=== PATIENT | male | born 1965 | race Hispanic/Latino ===

== ENCOUNTER 2016-07-11 12:23 | Emergency (ER) | payer OTHER ==
[2016-07-11 12:29] VITALS: BP 149/93
--- NOTE | 2016-07-11 12:53 | ERNOTE ---
Upper Extremity HPI - Narrative Date of Service: 07/11/16 - General Extremities Pain Location: 4th finger: left - left ring finger Time Seen by Provider: 07/11/16 12:33 Source: patient Exam Limitations: no limitations - Immun/Allergies/Home Medications Immunizations: IMMUNIZATION HX Immunizations Up to Date Yes History of Influenza Vaccine Yes Hx Pneumococcal Vaccination No Allergies/Adverse Reactions: Allergies Allergy/AdvReac Type Severity Reaction Status Date / Time No Known Allergies Allergy Verified 07/11/16 12:29 Home Medications: HOME MEDICATIONS Donepezil HCl [Aricept] 10 mg PO HS 02/18/15 [Last Taken Unknown] Rivaroxaban [Xarelto] 15 mg PO DAILY 07/11/16 [Last Taken Unknown] - Pain Score Pain Score #1 Pain Score: 7 - History of Present Illness Narrative: 50 year old man presents to ED ambulatory complaining of slamming his left ring finger in tail gate of truck just SIGNAL TE[employer]. Complains of pain from left knuckle to tip of left ring finger. Nail intact but bruising noted. Skin intact. Good sensation and movement. Declined Ibuprofen and ice Date (Duration): 07/11/16 Occurred: just prior to arrival Severity: mild Method of Injury: Reports: other - slammed finger into tail gate of truck Loss of Consciousness: Reports: no loss of consciousness Modifying Factors - (Improves): Reports: immobilization, rest Modifying Factors - (Worsens): Reports: movement Associated Symptoms: Denies: tingling, weakness, numbness distally, loss of feeling, loss of power (lt arm) Other Injuries: Reports: none Review of Systems - Review of Systems Constitutional: Present: no symptoms reported EYE: Present: no symptoms reported ENT: Present: no symptoms reported Respiratory: Present: no symptoms reported. Absent: shortness of breath, cough Cardiology: Present: no symptoms reported. Absent: chest pain, palpitations Gastrointestinal/Abdominal: Present: no symptoms reported. Absent: nausea, vomiting, diarrhea Genitourinary: Present: no symptoms reported Musculoskeletal: Present: joint pain, joint swelling Skin: Present: no symptoms reported Neurological: Present: no symptoms reported Endocrine: Present: no symptoms reported Hematologic/Lymphatic: Present: no symptoms reported Psych: Present: no symptoms reported - Patient's Past Medical History Patient History - Medical: Dementia, Other Patient History - Cardiac/Respiratory: Hypertension, Pulmonary Embolism, TIA Patient History - Cancer: No Hx of Cancer Patient History - Surgical Procedures: Other Patient History - Other: None - Social History Living Situations: home Psych History: No pertinent hx Smoking Status: Never smoker Have you smoked in the past 12 months: No Do you dip or chew tobacco: No Alcohol Use: none Drug Use: none - Immunizations Immunizations Up to Date: Yes Hx Pneumococcal Vaccination: No History of Influenza Vaccine: Yes Physical Exam - Physical Exam General Appearance: Present: wd/wn, alert, no apparent distress Eye Exam: Normal inspection: bilateral, PERRL: bilateral Ears, Nose, Throat: Present: normal ENT inspection, hearing grossly normal Neck: Present: normal inspection Respiratory: Present: no respiratory distress, normal breath sounds, no accessory muscle use, chest nontender, lungs clear Cardiovascular/Chest: Present: regular rate, rhythm, no murmur, normal peripheral pulses Gastrointestinal/Abdominal: Present: normal bowel sounds Rectal Exam: Present: deferred Male Genitals Exam: Present: deferred Back Exam: Present: normal inspection Extremity Exam: Present: normal inspection, no edema, decreased range of motion - left 4th digit Neurological Exam: Present: alert, oriented, normal mood/affect, no motor/ sensory deficits ED Progress - Vital Signs Patient's Vital Signs:: I have reviewed the patient's vital signs. Vital Signs: Vital Signs 07/11/16 12:26 Temperature 34.7 C L Pulse Rate 65 Respiratory 14 Rate Blood Pressure 149/93 O2 Sat by Pulse 98 Oximetry - X-Ray X-Ray #1 X-Ray: left ring finger Interpretation: Reviewed by me - Progress/Reassessment Chief Complaint: Hand Injury/Pain Progress:: Unchanged Progress Note-Subjective: 07/11/16 13:46 patient left AMA prior to final radiology results. Departure Clinical Impression: Finger injury Qualifiers: Encounter type: initial encounter Laterality: left Qualified Code(s): S69.92XA - Unspecified injury of left wrist, hand and finger(s), initial encounter - Departure Disposition: Left without seen by physician Condition: Good
--- OUTSIDE RECORDS SUMMARY | 2016-07-11 12:59 | XMS REPORT | Continuity of Care Document ---
:1965 Author Organization [facility] ([facility]) Address [address] [place] [address] Phone [phone] Care Team Providers Name Role Phone Domenico Peterson Primary Care Provider [phone] Source Comments This disclosure is being made pursuant to the Care Everywhere program, applicable federal and state laws, and may not contain all informaitonavailable regarding this patient.[facility] ([facility]) Active Allergies and Adverse Reactions No Known Allergies Current Medications Prescription Sig. Disp. Refills Start Date End Date Status ibuprofen 800 mg tablet Take 800 mg by Active mouth 2 times daily. multivitamin with minerals Take 1 Tab by Active tablet mouth daily. donepezil 23 mg tablet Take 23 mg by Active mouth daily nabumetone 750 mg tablet Take 750 mg by Active mouth 2 times daily HYDROcodone-acetaminophen Take 1 tablet by Active (VICODIN HP) 10-300 mg per mouth every 6 tablet hours as needed oxyCODONE (OxyCONTIN) 10 Take 15 mg by Active mg CR tablet mouth daily prn cyanocobalamin (VITAMIN Take 2,500 mcg by Active B-12) PO mouth ergocalciferol (VITAMIN Take 5,000 Units Active D2) 50,000 unit capsule by mouth Every other day cholecalciferol (VITAMIN Take 5,000 Units Active D3) 5,000 unit capsule by mouth every 48 hours predniSONE PO 6 tablets x 3 days Active then 3 tablets x 3 days then 1 1/2 tablets x 3 days then 1 tab x 3 days then half tab every other day x 3 days Active Problems Problem Noted Date 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 Bilateral foot pain 06/16/2012 Syncope and collapse 06/16/2012 Health education/counseling 10/12/2011 Patent foramen ovale 08/19/2011 Other physical therapy 04/01/2011 Dizziness - light-headed 04/01/2011 Health maintenance examination 03/23/2011 Pre-syncope 03/23/2011 Hip pain, bilateral 03/23/2011 Chronic foot pain 03/23/2011 Immunizations Name Dates Previously Given Next Due Influenza, PF 03/23/2011 Social History Tobacco Use Types Packs/Day Years Used Date Never Smoker Smokeless Tobacco: Former User Chew Quit: 03/29/2010 Tobacco Cessation:Counseling Given: Yes Comments: Alcohol Use Drinks/Week oz/Week Comments No none x 1.3 yrs. Last Filed Vital Signs Vital Sign Reading Time Taken Blood Pressure 137/71 05/09/2015 1:44 PM TRAVELING ACCOUNTANT Pulse 67 05/09/2015 1:44 PM TRAVELING ACCOUNTANT Temperature 36 C (96.8 F) 10/12/2011 9:35 AM CDT Respiratory Rate - - Height 1.791 m (5' 10.51") 03/25/2015 12:13 PM TRAVELING ACCOUNTANT Weight 88.5 kg (195 lb 1.7 oz) 05/09/2015 1:44 PM TRAVELING ACCOUNTANT Body Mass Index 27.59 05/09/2015 1:44 PM TRAVELING ACCOUNTANT Oxygen Saturation 95% 10/27/2012 9:00 AM CDT Plan of Care Patient Goal Type Goal Lifestyle believes there is none on the goal sheet for him to choose any. Health Maintenance Due Date Last Done Comments HCV Screening 1965 Hepatitis B Vaccine (1 of 3 - Primary Series) 1965 Tdap Vaccine 10/07/1975 MMR Vaccine 1982 Colonoscopy 2014 Prostate Cancer Screening 2014 Influenza Vaccine: Seasonal (#1) 12/23/2015 03/23/2011 Lipid Disorder Screening 03/23/2016 03/23/2011 Td Vaccine 03/23/2020 03/23/2010 Results from Last 3 Months Not on file
== END 2016-07-11 13:45 | disposition left against medical advice (07) ==
LOC: ER 12:23
DX: S69.92XA Unspecified injury of left wrist, hand and finger(s), initial encounter (principal); W23.0XXA Caught, crushed, jammed, or pinched between moving objects, initial encounter; Y92.810 Car as the place of occurrence of the external cause; I10 Essential (primary) hypertension; F03.90 Unspecified dementia, unspecified severity, without behavioral disturbance, psychotic disturbance, mood disturbance, and anxiety; Z86.711 Personal history of pulmonary embolism; Z86.73 Personal history of transient ischemic attack (TIA), and cerebral infarction without residual deficits; Z53.29 Procedure and treatment not carried out because of patient's decision for other reasons

== ENCOUNTER 2016-09-28 20:10 | Emergency (ER) | payer OTHER ==
[2016-09-28] MEDS ORDERED: PROMETHAZINE HCL 25 MG/ML AMPUL IM ONE (20:24)
[2016-09-28] MEDS ORDERED: NORMAL SALINE 1,000 ML IV ONE (20:24)
[2016-09-28] MEDS ORDERED: MORPHINE SULFATE 2 MG/ML DISP.SYRIN IV ONE (20:24)
--- OUTSIDE RECORDS SUMMARY | 2016-09-28 20:28 | XMS REPORT | Continuity of Care Document ---
:1965 Author Organization [facility] ([facility]) Address [address] [place] [address] Phone [phone] Care Team Providers Name Role Phone Domenico Peterson Primary Care Provider [phone] Source Comments This disclosure is being made pursuant to the Care Everywhere program, applicable federal and state laws, and may not contain all informaitonavailable regarding this patient.[facility] ([facility]) Active Allergies and Adverse Reactions No Known [...] Taken Blood Pressure 137/71 05/09/2015 1:44 PM COUNSELOR AIDE Pulse 67 05/09/2015 1:44 PM COUNSELOR AIDE Temperature 36 C (96.8 F) 10/12/2011 9:35 AM CDT Respiratory Rate - - Height 1.791 m (5' 10.51") 03/25/2015 12:13 PM COUNSELOR AIDE Weight 88.5 kg (195 lb 1.7 oz) 05/09/2015 1:44 PM COUNSELOR AIDE Body Mass Index 27.59 05/09/2015 1:44 PM COUNSELOR AIDE Oxygen Saturation 95% 10/27/2012 9:00 AM CDT [...]
--- NOTE | 2016-09-28 20:30 | ERNOTE ---
Abdominal HPI - General Chief Complaint: Abdominal Pain Time Seen by Provider: 09/28/16 20:18 Source: patient Exam Limitations: no limitations - Immun/Allergies/Home Medications Immunizatons: IMMUNIZATION HX Immunizations Up to Date Yes History of Influenza Vaccine Yes Hx Pneumococcal Vaccination No Allergies/Adverse Reactions: Allergies ibuprofen [From Advil] Adverse Reaction (Verified 09/28/16 20:50) morphine Adverse Reaction (Verified 09/28/16 20:50) Home Medications: HOME MEDICATIONS Donepezil HCl [Aricept] 10 mg PO HS 02/18/15 [Last Taken Unknown] Dabigatran Etexilate Mesylate [Pradaxa] 150 mg PO BID 09/28/16 [Last Taken Unknown] Esomeprazole Magnesium [Nexium] 20 mg PO DAILY 09/28/16 [Last Taken Unknown] Nabumetone 750 mg PO BID 09/28/16 [Last Taken Unknown] - History of Present Illness Narrative: Pt had IVC filter placed this AM and has increasing abdominal pain throughout the day with progressing right flank pain as well Timing: getting worse Quality: severe Activities at Onset: none Modifying Factors - (Improves): Present: analgesics - fentanyl given by EMS has improved pain slightly Associated Symptoms: Present: diaphoresis, shortness of breath Prior Abdominal Problems: Present: none Prior Treatment: Present: recently seen, treated by physician, recently hospitalized - IVC filter placed Review of Systems - Review of Systems Constitutional: Absent: recent illness EYE: Present: no symptoms reported ENT: Present: no symptoms reported Respiratory: Present: shortness of breath Cardiology: Absent: chest pain, palpitations Gastrointestinal/Abdominal: Present: abdominal pain Genitourinary: Present: pain Musculoskeletal: Present: back pain Skin: Present: no symptoms reported Neurological: Present: no symptoms reported Endocrine: Present: no symptoms reported Hematologic/Lymphatic: Present: no symptoms reported Psych: Present: no symptoms reported - Patient's Past Medical History Patient History - Medical: Dementia, Other Patient History - Cardiac/Respiratory: Hypertension, Pulmonary Embolism, TIA Patient History - Cancer: No Hx of Cancer Patient History - Surgical Procedures: Other - IVC filter placement Patient History - Other: None - Social History Living Situations: home Psych History: No pertinent hx Alcohol Use: none Drug Use: none - Immunizations Immunizations Up to Date: Yes Hx Pneumococcal Vaccination: No History of Influenza Vaccine: Yes Physical Exam - Physical Exam General Appearance: Present: wd/wn, alert, mild distress Eye Exam: Normal inspection: bilateral Respiratory: Present: normal breath sounds, no accessory muscle use, chest nontender Cardiovascular/Chest: Present: regular rate, rhythm, no murmur Peripheral Pulses: N=norm/S=strong/W=weak/B=bound/A=absent: Femoral (R): Normal , Dorsalis-pedis (R): Normal, Dorsalis-pedis (L): Normal Gastrointestinal/Abdominal: Present: normal bowel sounds, tenderness - Right mid abdomen Back Exam: Present: normal range of motion, CVA tenderness (R) Extremity Exam: Present: normal inspection Neurological Exam: Present: alert, oriented Skin Exam: Present: normal color, diaphoresis Lymphatic Exam: Present: no adenopathy ED Progress - Results and Orders Patient's Lab Results:: I have reviewed the patient's lab results. Results and Orders: Laboratory Tests 09/28/16 20:40 WBC 7.8 Hgb 15.9 Hct 44.9 Plt Count 196 - Vital Signs Patient's Vital Signs:: I have reviewed the patient's vital signs. - CT/Ultrasound CT/Ultrasound Narrative: IVC filter low in the IVC. Tines into bilateral common illiac veins. - Progress/Reassessment Progress:: Improved Progress Note-Subjective: Spoke with Dr. Roxana Lee at [facility]. She has no ICU beds , and will call back. She called back an they have no vascular coverage tonight. Spoke with Staff at [facility] and they report not having vascular coverage tonight. 09/28/16 21:[address] Roe Dutta at [facility] ED. He agrees to accept the patient in transfer. Departure - Departure Clinical Impression: Presence of vena cava filter Displacement of vascular device Qualifiers: Encounter type: initial encounter Qualified Code(s): T82.529A - Displacement of unspecified cardiac and vascular devices and implants, initial encounter Disposition: [facility] Condition: Serious
[2016-09-28] MEDS ORDERED: MORPHINE SULFATE 2 MG/ML DISP.SYRIN ONE (20:45)
[2016-09-28] MEDS ORDERED: PROMETHAZINE HCL 25 MG/ML AMPUL ONE (20:45)
[2016-09-28 20:47] LABS: Hematocrit 44.9 % (42.0-52.0); Hemoglobin 15.9 gm/dL (13.5-18.0); Mean Cell Volume 89.4 fl (78-100); Mean Corpuscular Hemoglobin 31.7 pg (27-31); Mean Corpuscular Hgb Conc 35.4 g/dl (32-36); Mean Platelet Volume 10.5 fl (6.0-9.5); Neutrophil # 3.5 K/mm3 (1.3-6.0); Platelet Count 196 K/mm3 (150-450); Red Blood Count 5.02 M/mm3 (4.7-6.0); Red Cell Distribution Width 12.7 % (11.5-14.0); White Blood Count 7.8 K/mm3 (4.0-10.5)
[2016-09-28] MEDS ORDERED: MORPHINE SULFATE 4 MG/ML SYRG ONE (21:07)
[2016-09-28] MEDS ORDERED: MORPHINE SULFATE 4 MG/ML SYRG IV ONE (21:16)
[2016-09-28 21:52] VITALS: BP 128/85
[2016-09-28] MEDS ORDERED: fentaNYL CITRATE/PF 50 MCG/ML AMPUL ONE (21:53)
[2016-09-28] MEDS ORDERED: fentaNYL CITRATE/PF 50 MCG/ML AMPUL IV ONE (21:54)
== END 2016-09-28 22:08 | disposition short-term general hospital (02) ==
LOC: ER 20:10
DX: T82.529A Displacement of unspecified cardiac and vascular devices and implants, initial encounter (principal); I10 Essential (primary) hypertension; Z86.711 Personal history of pulmonary embolism; Z79.01 Long term (current) use of anticoagulants; Z86.73 Personal history of transient ischemic attack (TIA), and cerebral infarction without residual deficits

== ENCOUNTER 2016-10-09 15:23 | Emergency (ER) | payer OTHER ==
[2016-10-09] MEDS ORDERED: oxyCODONE HCL/ACETAMINOPHEN 1 TAB TABLET PO ONE (16:14)
--- OUTSIDE RECORDS SUMMARY | 2016-10-09 16:14 | XMS REPORT | Continuity of Care Document ---
:1965 Author Organization [facility] ([facility]) Address [address] [place] [address] Phone [phone] Care Team Providers Name Role Phone Domenico Peterson Primary Care Provider [phone] Source Comments This disclosure is being made pursuant to the Care Everywhere program, applicable federal and state laws, and may not contain all informaitonavailable regarding this patient.[facility] ([facility]) Active Allergies and Adverse Reactions No Known Allergies Current Medications Prescription Sig. Disp. Refills Start End Date Status Date nabumetone 750 mg Take 750 mg by Active tablet mouth at bedtime. cyanocobalamin Take 2,500 mcg by Active (VITAMIN B-12) PO mouth daily. cholecalciferol Take 5,000 Units Active (VITAMIN D3) 5,000 by mouth every 48 unit capsule hours donepezil 10 mg Take 10 mg by Active tablet mouth at bedtime. oxyCODONE-acetaminop Take 1-2 tablets 15 tablet 0 Active hen 5-325 mg per by mouth every 6 7 tablet hours as needed. Do NOT exceed 4000 mg of acetaminophen per 24 hours. dabigatran (praDAXA) Take 150 mg by Active 150 mg capsule mouth 2 times daily. ibuprofen 800 mg Take 800 mg by 09/30/19 Discontinued tablet mouth 2 times 17 daily. multivitamin with Take 1 Tab by 09/30/19 Discontinued minerals tablet mouth daily. 17 donepezil 23 mg Take 23 mg by 09/30/19 Discontinued tablet mouth daily 17 HYDROcodone-acetamin Take 1 tablet by 09/30/19 Discontinued ophen (VICODIN HP) mouth every 6 17 10-300 mg per tablet hours as needed oxyCODONE Take 15 mg by 09/30/19 Discontinued (OxyCONTIN) 10 mg CR mouth daily prn 17 tablet ergocalciferol Take 5,000 Units 09/30/19 Discontinued (VITAMIN D2) 50,000 by mouth Every 17 unit capsule other day predniSONE PO 6 tablets x 3 09/30/19 Discontinued days then 3 17 tablets x 3 days then 1 1/2 tablets x 3 days then 1 tab x 3 days then half tab every other day x 3 days Active Problems Problem Noted Date RLQ abdominal pain 09/29/2016 S/P insertion of IVC (inferior vena caval) filter 09/29/2016 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 Bilateral foot pain 06/16/2012 Syncope and collapse 06/16/2012 Health education/counseling 10/12/2011 Patent foramen ovale 08/19/2011 Other physical therapy 04/01/2011 Dizziness - light-headed 04/01/2011 Health maintenance examination 03/23/2011 Pre-syncope 03/23/2011 Hip pain, bilateral 03/23/2011 Chronic foot pain 03/23/2011 Most Recent Encounters Date Type Specialty Providers Description 09/29/2016 Surgery Radiology Radiologist, Rad IR IVC FILTER Invasive PLACEMENT 09/29/2016 Surgery Radiology Radiologist, Rad Canceled IR Invasive PERIPHERAL RADIOLOGY PROCEDURE 09/28/2016 - Hospital Encounter General Care Theo Romano Dx: RLQ abdominal 09/30/2016 Inpatient - Adult MD Mitesh pain (Primary Dx) Jo Buitrago MD Sistla, Phanicharan, MD Soufi, Kaylah Fuentes MD Immunizations Name Dates Previously Given Next Due Influenza, PF 03/23/2011 Social History Tobacco Use Types Packs/Day Years Used Date Never Smoker Smokeless Tobacco: Former User Chew Quit: 03/29/2010 Tobacco Cessation:Counseling Given: Yes Comments: Alcohol Use Drinks/Week oz/Week Comments No none x 1.3 yrs. Last Filed Vital Signs Vital Sign Reading Time Taken Blood Pressure 126/80 09/30/2016 8:21 AM CDT Pulse 58 09/30/2016 8:21 AM CDT Temperature 36 C (96.8 F) 09/30/2016 8:21 AM CDT Respiratory Rate 16 09/30/2016 8:21 AM CDT Height 1.791 m (5' 10.5") 09/29/2016 5:56 AM CDT Weight 88.6 kg (195 lb 5.2 oz) 09/29/2016 5:56 AM CDT Body Mass Index 27.62 09/29/2016 5:56 AM CDT Oxygen Saturation 97% 09/30/2016 8:21 AM CDT Plan of Care Patient Goal Type Goal Lifestyle believes there is none on the goal sheet for him to choose any. Health Maintenance Due Date Last Done Comments HCV Screening 1965 Hepatitis B Vaccine (1 of 3 - Primary Series) 1965 Tdap Vaccine 10/07/1975 MMR Vaccine 1982 Colonoscopy 2014 Prostate Cancer Screening 2014 Lipid Disorder Screening 03/23/2016 03/23/2011 Influenza Vaccine: Seasonal (Season Ended) 2016 03/23/2011 Td Vaccine 03/23/2020 03/23/2010 Results from Last 3 Months DIFFERENTIAL (09/30/2016 5:16 AM)Only the most recent of2 resultswithin the time period is included. Component Value Range % Neutrophils-Auto Diff 44.4 % Neutrophils-Auto Diff 3300 9230-7836 /MM3 % Lymphocytes-Auto Diff 40.9 % Lymphocytes-Auto Diff 3050 875-3300 /MM3 % Monocytes-Auto Diff 9.1 % Monocytes-Auto Diff 680 130-860 /MM3 % Eosinophils-Auto Diff 4.7 % Eosinophils-Auto Diff 350 40-390 /MM3 % Basophils 0.5 % Basophils-Auto Diff 40 10-136 /MM3 % Immature Granulocytes-Auto Diff 0.4 % Immature Granulocytes-Auto Diff 30 /MM3 Specimen Whole Blood CBC (COMPLETE BLOOD COUNT) (09/30/2016 5:16 AM)Only the most recent of2 resultswithin the time period is included. Component Value Range WBC Count 7.5 3.7-10.5 K/MM3 RBC Count 5.01 4.50-6.20 M/MM3 Hemoglobin 15.8 13.2-17.7 g/dL Hematocrit 46 40-52 % MCV (Mean Corpuscular Volume) 91 82-99 FL MCH (Mean Corpuscular Hemoglobin) 32 25-35 PG MCHC (Mean Corpuscular Hemoglobin Concentration) 35 32-36 % Platelet Count 153 150-400 K/MM3 MPV (Mean Platelet Volume) 10.4 9.4-12.3 FL RBC Dist Width-STD 43.1 35.1-43.9 FL RBC Distrib Width 12.8 9.0-14.5 % Nucleated RBC 0 /100 WBC Specimen Whole Blood PT/INR (PROTHROMBIN TIME/INR) VENOUS (09/30/2016 5:16 AM)Only the most recent of2 resultswithin the time period is included. Component Value Range PT (Prothrombin Time) 10 9-12 secs INR 1.0 <4.0 Specimen Blood CHEM 7 PANEL (09/30/2016 5:16 AM) Component Value Range Sodium 140 135-145 mEq/L Chloride 104 95-107 mEq/L Potassium 4.1 3.5-5.0 mEq/L CO2 24 22-29 mEq/L BUN 16 10-20 mg/dL Creatinine 1.3(H)Comment: 0.6-1.2 mg/dL Creatinine switched to enzymatic method on 09/30/2010.GFR equation switched to IDMS-traceable MDRD equation on 09/30/2010. Calculated GFR values are not valid in clinical settings where serum creatinine is changing. Glucose 93Comment: 65-99 mg/dL The Expert Committee on the Diagnosis and Classification of Diabetes has defined impaired fasting glucose as greater than or equal to 100 mg/dL but less than 126 mg/dL.(Diabetes Care 28 (Suppl 1)S41,2005) Anion Gap 12 <17 mEq/L Calculated GFR 58(L) >60 mL/min/1.73 m2 Specimen Blood CBC WITH DIFFERENTIAL (09/30/2016 5:16 AM)Only the most recent of2 resultswithin the time period is included. Specimen Whole Blood Narrative The following orders were created for panel order CBC WITH DIFFERENTIAL. Procedure Abnormality Status --------- ------ CBC (COMPLETE BLOOD COUNT)[[id number]] Final result DIFFERENTIAL[[id number]] Final result Please view results for these tests on the individual orders. CT ABDOMEN& PELVIS WO CONTRAST ([id number]) (09/29/2016 4:24 PM) Impressions Impression: 1. No retroperitoneal or inguinal hematomas or fluid collections visualized. 2. IVC filter is located just above the confluence of common iliac veins in the distal IVC. Narrative Procedure: CT ABDOMEN & PELVIS WO CONTRAST ([id number]) Clinical Indication: right groin pain s/p IVC filter placement, please evaluate for complication of this such as retroperitoneal hematoma, etc. Technique: CT exam of the abdomen and pelvis is performed without IV contrast. Comparison: External CTA from 09/28/2016 Findings: The absence of IV contrast limits assessment of the solid organs, bowel, and vascular structures. Lower chest: Bibasilar atelectasis. Liver: Normal Bile ducts: Not dilated. Gallbladder: Vicarious excretion in the gallbladder. Pancreas: Normal Spleen: Normal Adrenal glands: Normal Kidneys: Right inferior pole punctate nonobstructing stone. Ureters: Normal Bladder: Contrast visualized in the bladder. Aorta: The IVC filter is visualized in the distal IVC just above the confluence of the common iliac vein. No aneurysmal dilation. Retroperitoneum: Scattered benign lymphadenopathy. Peritoneum: No ascites or pneumoperitoneum. Mesentery: Normal Stomach: Not distended. Small bowel: Not distended. Colon: Not distended. Appendix: Normal. Extraperitoneal pelvis: No lymphadenopathy. Prostate: Not enlarged. Abdominal wall: Small fat-containing umbilical hernia. No retroperitoneal hematoma or inguinal hematoma. No focal fluid collections or abscesses visualized. Moderate sized left fat-containing inguinal hernias. Bones: No acute fracture or destructive bone lesion. There are degenerative changes of the spine with osteophyte formation most prominent posteriorly at L5-S1. Procedure Note Jordi, Incoming Imaging Results - WedSeptember 30, 2016 8:31 AM CDT Procedure: CT ABDOMEN & PELVIS WO CONTRAST ([id number]) Clinical Indication: right groin pain s/p IVC filter placement, please evaluate for complication of this such as retroperitoneal hematoma, etc. Technique: CT exam of the abdomen and pelvis is performed without IV contrast. Comparison: External CTA from 09/28/2016 Findings: The absence of IV contrast limits assessment of the solid organs, bowel, and vascular structures. Lower chest: Bibasilar atelectasis. Liver: Normal Bile ducts: Not dilated. Gallbladder: Vicarious excretion in the gallbladder. Pancreas: Normal Spleen: Normal Adrenal glands: Normal Kidneys: Right inferior pole punctate nonobstructing stone. Ureters: Normal Bladder: Contrast visualized in the bladder. Aorta: The IVC filter is visualized in the distal IVC just above the confluence of the common iliac vein. No aneurysmal dilation. Retroperitoneum: Scattered benign lymphadenopathy. Peritoneum: No ascites or pneumoperitoneum. Mesentery: Normal Stomach: Not distended. Small bowel: Not distended. Colon: Not distended. Appendix: Normal. Extraperitoneal pelvis: No lymphadenopathy. Prostate: Not enlarged. Abdominal wall: Small fat-containing umbilical hernia. No retroperitoneal hematoma or inguinal hematoma. No focal fluid collections or abscesses visualized. Moderate sized left fat-containing inguinal hernias. Bones: No acute fracture or destructive bone lesion. There are degenerative changes of the spine with osteophyte formation most prominent posteriorly at L5-S1. IMPRESSION Impression: 1. No retroperitoneal or inguinal hematomas or fluid collections visualized. 2. IVC filter is located just above the confluence of common iliac veins in the distal IVC. EXTERNAL CT - STORE ONLY (09/29/2016 7:26 AM)PTT (PARTIAL THROMBOPLASTIN TIME) (09/29/2016 12:43 AM) Component Value Range PTT 23 22-31 secs Specimen Blood BASIC METABOLIC PANEL W/ CALCIUM (CHEM 8) (09/29/2016 12:43 AM) Component Value Range Sodium 143 135-145 mEq/L Potassium 4.3 3.5-5.0 mEq/L Chloride 109(H) 95-107 mEq/L CO2 24 22-29 mEq/L BUN 14 10-20 mg/dL Creatinine 1.2Comment: 0.6-1.2 mg/dL Creatinine switched to enzymatic method on 09/30/2010.GFR equation switched to IDMS-traceable MDRD equation on 09/30/2010. Calculated GFR values are not valid in clinical settings where serum creatinine is changing. Glucose 100(H)Comment: 65-99 mg/dL The Expert Committee on the Diagnosis and Classification of Diabetes has defined impaired fasting glucose as greater than or equal to 100 mg/dL but less than 126 mg/dL.(Diabetes Care 28 (Suppl 1)S41,2005) Calcium 8.4(L) 8.5-10.5 mg/dL Anion Gap 10 <17 mEq/L Calculated GFR 64 >60 mL/min/1.73 m2 Specimen Blood
--- NOTE | 2016-10-09 16:16 | ERNOTE ---
Lower Extremity HPI - Narrative Date of Service: 10/09/16 - General Lower Extremities Pain: knee: left Time Seen by Provider: 10/09/16 15:47 Source: patient, RN notes reviewed, old records - Immun/Allergies/Home Medications Immunizations: IMMUNIZATION HX Immunizations Up to Date Yes History of Influenza Vaccine No Hx Pneumococcal Vaccination No Allergies/Adverse Reactions: Allergies Allergy/AdvReac Type Severity Reaction Status Date / Time ibuprofen [From Advil] AdvReac Verified 10/09/16 15:43 morphine AdvReac Verified 10/09/16 15:43 Home Medications: HOME MEDICATIONS Donepezil HCl [Aricept] 10 mg PO HS 02/18/15 [Last Taken Unknown] Dabigatran Etexilate Mesylate [Pradaxa] 150 mg PO BID 09/28/16 [Last Taken Unknown] Esomeprazole Magnesium [Nexium] 20 mg PO DAILY 09/28/16 [Last Taken Unknown] Nabumetone 750 mg PO HS 09/28/16 [Last Taken Unknown] oxyCODONE HCL/ACETAMINOPHEN [Oxycodone-Acetaminophen 5-325] 1 each PO Q6H PRN # 12 tablet 10/09/16 [Last Taken Unknown] - History of Present Illness Narrative: 51 y/o male ambulatory to the ED for left knee pain and swelling. He was diagnosed with a DVT behind the left knee approximately 6 weeks ago. He was also found to have several pulmonary emboli. He was initially anticoagulated with Xarelto. He had a repeat chest CTA for re-evaluation and was found to have more pulmonary emboli despite being anticoagulated. He was switched to Pradaxa. He then had an IVC filter placed at [facility] earlier this month. He was then seen here on 09/28/16 and the filter was found to be displaced. He was transferred to [facility] and discharged on 09/30/16. No intervention was done regarding the filter. He is also having pain in his left anterior chest that began today. He reports that it feels similar to the pain he has had with his PE's. Method of Injury: Reports: no apparent injury Modifying Factors - (Improves): Denies: immobilization, movement, rest Modifying Factors - (Worsens): Denies: movement, rest Associated Symptoms: Denies: unable to bear weight Prior Treament: Reports: recently seen, treated by physician, recently hospitalized, similar symptoms before. Denies: currently on antibiotics Review of Systems - Review of Systems Constitutional: Absent: fever, chills, malaise EYE: Present: no symptoms reported ENT: Present: no symptoms reported Respiratory: Absent: shortness of breath, cough Cardiology: Present: chest pain, edema. Absent: palpitations, claudication Gastrointestinal/Abdominal: Absent: nausea, abdominal pain Genitourinary: Present: no symptoms reported Musculoskeletal: Absent: joint pain, joint swelling Skin: Present: change in color. Absent: rash, lesions, lumps Neurological: Absent: headache, dizziness/light-headedness, weakness, numbness, tingling Endocrine: Present: no symptoms reported Hematologic/Lymphatic: Present: easy bruising, easy bleeding Psych: Present: no symptoms reported - Patient's Past Medical History Patient History - Medical: Dementia Patient History - Cardiac/Respiratory: Deep Vein Thrombosis, Hypertension, Pulmonary Embolism, TIA Patient History - Cancer: No Hx of Cancer Patient History - Surgical Procedures: Other - IVF filter, Orthopedic - Carpal tunnel Patient History - Other: None - Social History Living Situations: alone Psych History: No pertinent hx Smoking Status: Never smoker Alcohol Use: none Drug Use: none - Immunizations Immunizations Up to Date: Yes Hx Pneumococcal Vaccination: No History of Influenza Vaccine: No Physical Exam - Physical Exam General Appearance: Present: wd/wn, alert, anxious Neck: Present: normal inspection, nontender, supple Respiratory: Present: no respiratory distress, normal breath sounds, no accessory muscle use, chest nontender, lungs clear Cardiovascular/Chest: Present: regular rate, rhythm, no murmur, normal peripheral pulses Extremity Exam: Present: normal range of motion, extremity edema - left leg slightly edematous from just above knee to distal calf, other - tenderness in left popliteal fossa and anterior distal thigh. Absent: calf tenderness, joint redness, joint swelling Neurological Exam: Present: alert, oriented, normal mood/affect, no motor/ sensory deficits Skin Exam: Present: normal color, warm/dry ED Progress - Results and Orders Patient's Lab Results:: I have reviewed the patient's lab results. - Vital Signs Patient's Vital Signs:: I have reviewed the patient's vital signs. Vital Signs: Vital Signs 10/09/16 10/09/16 15:29 15:55 Temperature 36.2 C L Pulse Rate 65 64 Respiratory 12 16 Rate Blood Pressure 124/68 138/87 O2 Sat by Pulse 98 97 Oximetry - EKG EKG: NSR EKG read: Reviewed by me - CT/Ultrasound CT/Ultrasound Narrative: Comparison: September 18, 2016 Technique: US Venous Ext Limited LT * Findings: Duplex Doppler grayscale and color interrogation of the left deep venous system was performed. Reidentified partially compressible popliteal vein due to thrombosis. This is unchanged from prior exam. The remainder of the deep venous system on the left is patent. IMPRESSION: Unchanged partially occlusive deep venous thrombosis within the popliteal vein Electronically signed by Yohannes Chavez M.D.. Comparison: CT scan dated September 09, 2016 and September 28, 2016 Technique: CTA Chest * Findings: No axillary, mediastinal or hilar lymphadenopathy. No pleural or pericardial effusion. No suspicious pulmonary nodule, consolidation or mass. There is dependent atelectasis within the lungs. Reidentified right main extending into lower lobe segmental and subsegmental segmental pulmonary artery branch filling defects. There also is some extension into some upper lobe branches as well on the right. PEs were seen in August in the lower lobe segmental and subsegmental branches and some upper lobe as well. These do appear slightly different than in August and the possibility of acute on chronic PE cannot be entirely excluded. No left-sided PE identified. No right heart strain. The pulmonary artery is normal in course and caliber. Aorta is normal in course and caliber. Great vessels are unremarkable. Heart size is normal. There is fatty infiltration of the liver. Osseous structures are intact. IMPRESSION: 1. Multiple chronic PEs on the right as detailed above. The possibility of acute on chronic PTE cannot be entirely excluded. No identifiable right heart strain or enlarged pulmonary artery. Electronically signed by Yohannes Chavez M.D.. - Progress/Reassessment Chief Complaint: Lower Extremity Pain/ Injury Progress:: Improved Plan - Plan Plan: Discussed test results with patient. DVT of left leg is stable. Has multiple right sided PE's - likely chronic although acute on chronic could not be ruled out on his chest CTA, however, his pain today was in the left chest and there were no left sided PE's. He has had no dyspnea, tachycardia, or hypoxia that would be suspicious of an acute PE. Some improvement in knee pain with Percocet , to f/u with PCP on Wednesday if knee pain and edema are not improving. Departure Clinical Impression: Deep vein thrombophlebitis of left leg Chronic pulmonary embolism Qualifiers: Pulmonary embolism type: other Acute cor pulmonale presence: without acute cor pulmonale Qualified Code(s): I27.82 - Chronic pulmonary embolism Knee pain, left Qualifiers: Chronicity: acute Qualified Code(s): M25.562 - Pain in left knee - Departure Disposition: Home Follow Up Needed Condition: Stable Instructions: Knee Pain, [id number] Additional Instructions: Continue your current medications Contact your PCP next week if knee pain and swelling persists Referrals: Deepthi Rene ARNP [Non Staff Physicians] - Prescriptions: oxyCODONE HCL/ACETAMINOPHEN [Oxycodone-Acetaminophen 5-325] 1 each PO Q6H PRN # 12 tablet PRN Reason: Pain
[2016-10-09] MEDS ORDERED: oxyCODONE HCL/ACETAMINOPHEN 1 TAB TABLET ONE (16:17)
[2016-10-09 16:31] LABS: Hematocrit 49.8 % (42.0-52.0); Hemoglobin 17.5 gm/dL (13.5-18.0); Mean Cell Volume 90.4 fl (78-100); Mean Corpuscular Hemoglobin 31.8 pg (27-31); Mean Corpuscular Hgb Conc 35.1 g/dl (32-36); Mean Platelet Volume 10.1 fl (6.0-9.5); Neutrophil # 4.2 K/mm3 (1.3-6.0); Neutrophil % 51.4 % (42-75.0); Platelet Count 237 K/mm3 (150-450); Red Blood Count 5.51 M/mm3 (4.7-6.0); Red Cell Distribution Width 12.5 % (11.5-14.0); White Blood Count 8.2 K/mm3 (4.0-10.5)
[2016-10-09 16:39] LABS: Prothrombin Time (Patient) 11.8 Seconds (9.4-11.4)
[2016-10-09 16:40] LABS: INR 1.13 INR (0.90-1.10); Partial Thrombolplastin Time 39.2 Seconds (24-32)
[2016-10-09 16:47] LABS: ALT 44 U/L (19-67); AST 21 U/L (0-48); Albumin * 3.8 gm/dl (3.4-5.0); Alkaline Phosphatase * 154 U/L (50-170); Bilirubin, Total 0.3 mg/dL (0.0-1.1); Blood Urea Nitrogen 17 mg/dL (6-23); Ca. Corrected For Albumin 9.1 mg/dL (8.4-10.2); Calcium * 9.3 mg/dL (7.9-10.9); Carbon Dioxide 29.1 mmol/L (24-32.6); Chloride 106 mmol/L (97-106); Glucose * 105 mg/dL (70-110); Potassium 4.1 mmol/L (3.4-4.6); Sodium 141 mmol/L (132-142); Total Protein 7.3 gm/dL (6.2-8.2); Troponin I Less than 0.017 ng/ml (0.00-0.10)
[2016-10-09 18:48] VITALS: BP 129/84
== END 2016-10-09 18:45 | disposition home or self-care (01) ==
LOC: ER 15:23
DX: I82.402 Acute embolism and thrombosis of unspecified deep veins of left lower extremity (principal); I27.82 Chronic pulmonary embolism; M25.562 Pain in left knee; F03.90 Unspecified dementia, unspecified severity, without behavioral disturbance, psychotic disturbance, mood disturbance, and anxiety; Z86.73 Personal history of transient ischemic attack (TIA), and cerebral infarction without residual deficits; Z86.711 Personal history of pulmonary embolism; Z79.01 Long term (current) use of anticoagulants

== ENCOUNTER 2017-03-20 16:16 | Emergency (ER) | payer OTHER ==
[2017-03-20 16:25] VITALS: BP 125/86
--- NOTE | 2017-03-20 16:51 | ERNOTE ---
Medical Problem HPI - Narrative Date of Service: 03/20/17 - General Chief Complaint: Laceration Time Seen by Provider: 03/20/17 16:22 Source: patient Exam Limitations: no limitations - Immun/Allergies/Home Medications Immunizations: IMMUNIZATION HX Immunizations Up to Date Yes History of Influenza Vaccine No Hx Pneumococcal Vaccination No Allergies/Adverse Reactions: Allergies ibuprofen [From Advil] Adverse Reaction (Verified 03/20/17 16:20) morphine Adverse Reaction (Verified 03/20/17 16:20) Home Medications: HOME MEDICATIONS Donepezil HCl [Aricept] 10 mg PO HS 02/18/15 [Last Taken Unknown] Dabigatran Etexilate Mesylate [Pradaxa] 150 mg PO BID 09/28/16 [Last Taken Unknown] Cephalexin Monohydrate [Keflex] 500 mg PO Q8H #21 capsule 03/20/17 [Last Taken Unknown] - History of Present History Narrative: patient presents to the ED for laceration of his left 4th digit. He cut it on a razor blade knife opening a sack at 10 am. He initially wasn't going to come in but it started bleeding from under the bandage so he came in to have it sutured. The It is the dorsum of his finger over the PIP joint. He states the tip of his finger is somewhat numb. No weakness. Finger is otherwise moving normally. No other injuries or concerns. dT UTD. Timing: constant Severity: mild Modifying Factors - (Improves): Present: other - nothing Modifying Factors - (Worsens): Present: other - nothing Review of Systems - Review of Systems Constitutional: Absent: fever Musculoskeletal: Present: See HPI Skin: Present: See HPI Neurological: Absent: weakness - Patient's Past Medical History Patient History - Medical: Dementia Patient History - Cardiac/Respiratory: Deep Vein Thrombosis, Hypertension, Pulmonary Embolism, TIA Patient History - Cancer: No Hx of Cancer Patient History - Surgical Procedures: Other, Orthopedic Patient History - Other: None - Social History Living Situations: home Psych History: No pertinent hx - Immunizations Immunizations Up to Date: Yes Hx Pneumococcal Vaccination: No History of Influenza Vaccine: No Physical Exam - Physical Exam General Appearance: Present: alert, no apparent distress Head Exam: Present: normal inspection Cardiovascular/Chest: Present: normal peripheral pulses Extremity Exam: Present: other - no bone tendenress. Full extension strength of finger inquestion. Full FDS and FDP tendon strength. No joint involvement Neurological Exam: Present: other - no motor deficits. He has diffuse decresed LT sensation tip of finger inquestion but still has sensation, subjective decreased sensation. Skin Exam: Present: other - 1cm lac, I find no involvement of the joint or the tendon sheath. Taken throug a full ROM and no evidence of joint or tendon involvement. No FB. ED Progress - Vital Signs Patient's Vital Signs:: I have reviewed the patient's vital signs. Vital Signs: Vital Signs 03/20/17 16:22 Temperature 36.7 C Pulse Rate 68 Respiratory 14 Rate Blood Pressure 125/86 O2 Sat by Pulse 95 Oximetry - Progress/Reassessment Chief Complaint: Laceration Progress Note-Subjective: 03/20/17 16:46 X-ray not indicated by my exam. I discussed options, he is on the edge of closure but is is bleeding with his anticoagulation. he elects closure, Given this I will place hhim on ABx for a short course. I stressed need for close f/ u and potential for complication and he understands. No FB, joint involvement or tendon injury by my exam. Procedures Left Dorsal 4th Digit Anesthesia: 1% Lidocaine I & D Prep: betadine prep, sterile drapes applied Length of Repair/Wound (cm): 1 Wound's Depth/Shape: into subcutaneous, linear Wound Explored: clean, to base, in bloodless field, no foreign body Wound Intervention: irrigated w/saline Distal NVT: no tendon injury, other - subjective decreased LT sensation tip of finger Wound Repaired With: sutures Suture Size/Type: 4-0, nylon Number of Sutures: 1 Layer Closure: Simple Estimated blood loss (ml): 0 Wound Dressing: sterile dressing applied, splint applied Complications: Pt clif procedure well Departure Clinical Impression: Finger laceration - Departure Disposition: Home self-care Condition: Stable Instructions: Stitches, Darcy, or Adhesive Wound Closure, [id number] Additional Instructions: Antibiotic as directed. Re-check with primary doctor in 3 days to have a wound re-evaluation. Return for signs of infection, increased pain, numbness, tingling, weakness or if your condition worsens or changes in any way. Referrals: Deepthi Rene ARNP [Primary Care Provider] - Prescriptions: Cephalexin Monohydrate [Keflex] 500 mg PO Q8H #21 capsule
== END 2017-03-20 16:53 | disposition home or self-care (01) ==
LOC: ER 16:16
PROC: 0JQK0ZZ Repair Left Hand Subcutaneous Tissue and Fascia, Open Approach (ICD-10-PCS; principal; 2017-03-20)
DX: S61.215A Laceration without foreign body of left ring finger without damage to nail, initial encounter (principal); W26.0XXA Contact with knife, initial encounter; Y93.89 Activity, other specified; I10 Essential (primary) hypertension